=== PATIENT | male | born 1995 | race Caucasian/White ===

== ENCOUNTER 2023-06-03 18:30 | Inpatient (IN) | payer OTHER ==
[~2023-06-03] VITALS: Ht 162.6 cm; Wt 86.2 kg
[2023-06-03 18:35] VITALS: BP 180/122; PULSE 108; RESP 22; TEMP 97.8; O2SAT 96
[2023-06-03 19:15] LABS: ANION GAP 13.7 (8-16); CALCIUM 9.4 mg/dL (8.5-10.1); CARBON DIOXIDE 26.3 mmol/L (21-32); CREATININE 1.3 mg/dL (0.6-1.3)
[2023-06-03] MEDS: LORazepam 2 MG/ML VIAL IVP ONE (19:15)
[2023-06-03 19:48] LABS: BASOPHILS % (AUTO) 0.4 % (0.0-2.0); EOSINOPHILS # (AUTO) 0.1 K/uL (0-0.4); EOSINOPHILS % (AUTO) 0.6 % (0.0-4.0); HEMATOCRIT 38.5 % (36-52); LYMPHOCYTES # (AUTO) 2.9 K/uL (2.0-11.5); LYMPHOCYTES % (AUTO) 24.9 % (20.5-51.1); MEAN CORPUSCULAR HEMOGLOBIN 30 pg (27-31); MEAN CORPUSCULAR HGB CONC 34 g/dL (33-37); MEAN CORPUSCULAR VOLUME 89.2 fL (80-94); MONOCYTES # (AUTO) 0.6 K/uL (0.8-1.0); MONOCYTES % (AUTO) 5.2 % (1.7-9.3); NEUTROPHILS # (AUTO) 8.1 K/uL (1.8-7.7); NEUTROPHILS % (AUTO) 68.9 % (42.2-75.2); PLATELET COUNT (AUTO) 335 K/uL (140-450); RED BLOOD CELL COUNT(AUTO) 4.31 MIL/uL (4.20-6.10); RED CELL DISTRIBUTION WIDTH 14.1 % (11.6-13.7); WHITE BLOOD COUNT (AUTO) 11.8 K/uL (4.8-10.8)
[2023-06-03] MEDS ORDERED: ONDANSETRON 4 MG/2 ML VIAL IVP PRN (20:15)
[2023-06-03] MEDS ORDERED: MAGNESIUM OXIDE 400 MG TAB PO PRN (20:15)
[2023-06-03] MEDS ORDERED: HYDROcodone/APAP 5/325 MG 1 TAB TAB PO PRN (20:15)
[2023-06-03] MEDS ORDERED: POTASSIUM CHLORIDE 10 MEQ TABER PO PRN (20:15)
[2023-06-03] MEDS ORDERED: MAG SULF 2000 MG/WATER PREMIX 50 ML IV PRN (20:15)
[2023-06-03] MEDS ORDERED: ACETAMINOPHEN 325 MG TAB PO PRN (20:15)
[2023-06-03] MEDS ORDERED: levETIRAcetam 100 MG/ML VIAL IV ONE (20:35)
[2023-06-03] MEDS: levETIRAcetam 1,000 MG in NACL 0.9% 100 ML IV ONE (20:39)
[2023-06-03] MEDS: DIAZEPAM PFS 10 MG/2 ML SYR IVP ONE (20:40)
[2023-06-03] MEDS ORDERED: levETIRAcetam 500 MG in NACL 0.9% 100 ML IV SCH (21:00)
[2023-06-03] MEDS ORDERED: LACO100T PO (21:35)
[2023-06-03] MEDS ORDERED: HAL5 PO (21:35)
[2023-06-03] MEDS ORDERED: MIDA5SPR NS (21:43)
[2023-06-03] MEDS ORDERED: METO25TE2 PO (21:43)
[2023-06-03] MEDS ORDERED: LEVE1000 PO (21:43)
[2023-06-03] MEDS ORDERED: ATI.5 PO (21:43)
[2023-06-03] MEDS ORDERED: LAM200 PO (21:43)
[2023-06-03] MEDS ORDERED: LAM25 PO (21:43)
[2023-06-03 23:00] VITALS: BP 136/84; PULSE 105; PULSE 114; RESP 18; TEMP 98; O2SAT 98
[2023-06-03] MEDS: LORazepam 1 MG TAB PO PRN (23:10)
[2023-06-04] VITALS (8 sets, daily range): BP systolic 117–147; BP diastolic 63–85; PULSE 71–122; RESP 17–18; TEMP 97.4–97.8; O2SAT 94–99
[2023-06-04 06:47] LABS: BASOPHILS # (AUTO) 0.2 K/uL (0.00-0.22); BASOPHILS % (AUTO) 1.8 % (0.0-2.0); EOSINOPHILS # (AUTO) 0.1 K/uL (0-0.4); EOSINOPHILS % (AUTO) 1.4 % (0.0-4.0); HEMATOCRIT 41.3 % (36-52); HEMOGLOBIN 14.2 g/dL (12.0-18.0); LYMPHOCYTES # (AUTO) 3.6 K/uL (2.0-11.5); LYMPHOCYTES % (AUTO) 41.2 % (20.5-51.1); MEAN CORPUSCULAR HEMOGLOBIN 31 pg (27-31); MEAN CORPUSCULAR HGB CONC 35 g/dL (33-37); MEAN CORPUSCULAR VOLUME 88.5 fL (80-94); MONOCYTES # (AUTO) 0.6 K/uL (0.8-1.0); MONOCYTES % (AUTO) 6.4 % (1.7-9.3); NEUTROPHILS # (AUTO) 4.3 K/uL (1.8-7.7); NEUTROPHILS % (AUTO) 49.2 % (42.2-75.2); PLATELET COUNT (AUTO) 348 K/uL (140-450); RED BLOOD CELL COUNT(AUTO) 4.66 MIL/uL (4.20-6.10); RED CELL DISTRIBUTION WIDTH 14.3 % (11.6-13.7); WHITE BLOOD COUNT (AUTO) 8.7 K/uL (4.8-10.8)
[2023-06-04 07:23] LABS: ANION GAP 15.7 (8-16); CALCIUM 9.5 mg/dL (8.5-10.1); CREATININE 1.2 mg/dL (0.6-1.3); POTASSIUM 3.7 mmol/L (3.5-5.1)
[2023-06-04 07:38] LABS: MAGNESIUM 2.2 mg/dL (1.8-2.4); PHOSPHORUS 4.7 mg/dL (2.5-4.9)
[2023-06-04] MEDS: levETIRAcetam 500 MG in NACL 0.9% 100 ML IV SCH (10:05)
[2023-06-04] MEDS ORDERED: LEVE1000 PO (12:42)
[2023-06-04] MEDS ORDERED: LACO100T PO (12:42)
[2023-06-04] MEDS ORDERED: LAM200 PO (12:42)
[2023-06-04] MEDS ORDERED: MEDS-TO-BEDS MC SCH (21:00)
== END 2023-06-04 19:20 | disposition home or self-care (01) | DRG 53 ==
LOC: MED 18:30 → MTU 20:18 → MMU 21:23
PROVIDERS: ADMIT Student in an Organized Health Care Education/Training Program; ATTEND Student in an Organized Health Care Education/Training Program
DX: G40.909 Epilepsy, unspecified, not intractable, without status epilepticus (principal); E86.1 Hypovolemia; I10 Essential (primary) hypertension; Z79.899 Other long term (current) drug therapy
CPT/HCPCS: 36415; 70450; 71045; 80048; 83735; 84100; 85025; 87081; 93005; 96374; 96375; 99285; J1644; J1953; J3360

== ENCOUNTER 2023-06-07 22:04 | Inpatient (IN) | payer OTHER ==
[~2023-06-07] VITALS: Ht 175.3 cm; Wt 81.3 kg
[2023-06-07 22:04] VITALS: BP 150/116; PULSE 124; RESP 20; TEMP 98.1; O2SAT 93
[~2023-06-07 22:04] MED LIST: ATI.5 PO; HAL5 PO; LACO100T PO; LAM200 PO; LEVE1000 PO; METO25TE2 PO; MIDA5SPR NS
[2023-06-07] MEDS ORDERED: LORazepam 2 MG/ML VIAL ONE (22:26)
[2023-06-07 22:28] VITALS: O2SAT 96
[2023-06-07] MEDS: LORazepam 2 MG/ML VIAL IVP ONE (22:30)
[2023-06-07] MEDS ORDERED: PHENYTOIN 250 MG/5 ML VIAL IV ONE (22:36)
[2023-06-07] MEDS: PHENYTOIN 1,000 MG in NACL 0.9% 100 ML IV ONE (22:52)
[2023-06-07 22:57] LABS: BASOPHILS # (AUTO) 0.2 K/uL (0.00-0.22); BASOPHILS % (AUTO) 2.3 % (0.0-2.0); EOSINOPHILS # (AUTO) 0.3 K/uL (0-0.4); EOSINOPHILS % (AUTO) 3.8 % (0.0-4.0); HEMOGLOBIN 14.6 g/dL (12.0-18.0); LYMPHOCYTES # (AUTO) 2.5 K/uL (2.0-11.5); LYMPHOCYTES % (AUTO) 32.7 % (20.5-51.1); MEAN CORPUSCULAR HEMOGLOBIN 31 pg (27-31); MEAN CORPUSCULAR HGB CONC 35 g/dL (33-37); MEAN CORPUSCULAR VOLUME 88.6 fL (80-94); MONOCYTES # (AUTO) 0.7 K/uL (0.8-1.0); MONOCYTES % (AUTO) 8.9 % (1.7-9.3); NEUTROPHILS % (AUTO) 52.3 % (42.2-75.2); PLATELET COUNT (AUTO) 331 K/uL (140-450); RED BLOOD CELL COUNT(AUTO) 4.74 MIL/uL (4.20-6.10); RED CELL DISTRIBUTION WIDTH 14.2 % (11.6-13.7); WHITE BLOOD COUNT (AUTO) 7.5 K/uL (4.8-10.8)
[2023-06-07] MEDS: NACL 0.9% 1,000 ML IV ONE (22:58)
[2023-06-07 23:08] LABS: ANION GAP 14.8 (8-16); CALCIUM 8.6 mg/dL (8.5-10.1); CREATININE 1.2 mg/dL (0.6-1.3); POTASSIUM 3.8 mmol/L (3.5-5.1)
[2023-06-07 23:16] LABS: LACTIC ACID 1.7 mmol/L (0.4-2.0)
[2023-06-07 23:25] LABS: ALBUMIN 3.6 g/dL (3.4-5.0); TOTAL BILIRUBIN 0.3 mg/dL (0.0-1.0); TOTAL PROTEIN, SERUM 6.8 g/dL (6.4-8.2)
[2023-06-07] MEDS: KETAMINE 500 MG/5 ML VIAL IVP ONE (23:28)
[2023-06-08] VITALS (8 sets, daily range): BP systolic 140–148; BP diastolic 80–83; PULSE 65–123; RESP 20; TEMP 97.7–98.6; O2SAT 95–98
[2023-06-08 00:33] LABS: APPEARANCE,URINE CLEAR (CLEAR); BILIRUBIN,URINE NEGATIVE (NEGATIVE); BLOOD, URINE NEGATIVE (NEGATIVE); COLOR,URINE YELLOW (YELLOW); LEUKOCYTE ESTERASE ,URINE NEGATIVE (NEGATIVE); NITRITE, URINE NEGATIVE (NEGATIVE); PROTEIN,URINE NEGATIVE (NEGATIVE); UGLUCOSE NEGATIVE (NEGATIVE); UROBILINOGEN,URINE 0.2 EU/dL (0.2 - 1)
[2023-06-08] MEDS: LORazepam 2 MG/ML VIAL IVP ONE (00:36)
[2023-06-08] MEDS ORDERED: levETIRAcetam 100 MG/ML VIAL IV ONE (00:36)
[2023-06-08] MEDS: levETIRAcetam 1,000 MG in NACL 0.9% 100 ML IV ONE (00:38)
[2023-06-08] MEDS: HALOPERIDOL 5 MG TAB PO SCH (01:03)
[2023-06-08] MEDS ORDERED: HYDROcodone/APAP 5/325 MG 1 TAB TAB PO PRN (01:05)
[2023-06-08] MEDS ORDERED: ONDANSETRON 4 MG/2 ML VIAL IVP PRN ×2 (01:05→01:15)
[2023-06-08] MEDS ORDERED: NACL 0.9% 1,000 ML IV SCH (01:05)
[2023-06-08] MEDS ORDERED: ACETAMINOPHEN 325 MG TAB PO PRN (01:05)
[2023-06-08] MEDS: NACL 0.9% 1,000 ML IV SCH (01:24)
[2023-06-08] MEDS ORDERED: KETAMINE 500 MG/5 ML VIAL ONE (03:22)
[2023-06-08] MEDS: KETAMINE HCL 50 mg/5 mL UD SYRINGE IV ONE (03:24)
[2023-06-08] MEDS: LORazepam 2 MG/ML VIAL IVP PRN (04:04)
[2023-06-08] MEDS: LORazepam 0.5 MG TAB PO SCH (06:00)
[2023-06-08] MEDS: diphenhydrAMINE 50 MG/ML VIAL IVP ONE (06:45)
[2023-06-08] MEDS ORDERED: METOPROLOL SUCCINATE 50 MG TABER PO SCH (09:00)
[2023-06-08] MEDS: levETIRAcetam 1,000 MG in NACL 0.9% 100 ML IV SCH (11:09)
[2023-06-08] MEDS: LACOSAMIDE 100 MG TAB PO SCH (11:42)
[2023-06-08] MEDS: METOPROLOL SUCCINATE 50 MG TABER PO SCH (11:43)
[2023-06-08] MEDS: ENOXAPARIN 40 MG/0.4 ML SYR SUBQ SCH (11:54)
[2023-06-08] MEDS: CRUSHER, PILL MC ONE (12:05)
[2023-06-09] VITALS: BP 139/85; PULSE 114; RESP 22; TEMP 96.8; O2SAT 99
[2023-06-09 04:00] VITALS: BP 135/73; PULSE 100; RESP 22; TEMP 96.4; O2SAT 95
[2023-06-09 08:00] VITALS: BP 140/82; PULSE 103; RESP 20; TEMP 98.3; O2SAT 97; O2SAT 98
[2023-06-09 08:09] LABS: BASOPHILS % (AUTO) 0.4 % (0.0-2.0); EOSINOPHILS # (AUTO) 0.2 K/uL (0-0.4); EOSINOPHILS % (AUTO) 3.3 % (0.0-4.0); HEMATOCRIT 42.2 % (36-52); HEMOGLOBIN 14.3 g/dL (12.0-18.0); LYMPHOCYTES % (AUTO) 42.5 % (20.5-51.1); MEAN CORPUSCULAR HEMOGLOBIN 31 pg (27-31); MEAN CORPUSCULAR HGB CONC 34 g/dL (33-37); MEAN CORPUSCULAR VOLUME 90.3 fL (80-94); MONOCYTES # (AUTO) 0.5 K/uL (0.8-1.0); MONOCYTES % (AUTO) 6.9 % (1.7-9.3); NEUTROPHILS # (AUTO) 3.3 K/uL (1.8-7.7); NEUTROPHILS % (AUTO) 46.9 % (42.2-75.2); PLATELET COUNT (AUTO) 302 K/uL (140-450); RED BLOOD CELL COUNT(AUTO) 4.67 MIL/uL (4.20-6.10); RED CELL DISTRIBUTION WIDTH 14.1 % (11.6-13.7)
[2023-06-09 08:11] LABS: ALBUMIN 3.3 g/dL (3.4-5.0); ANION GAP 13.4 (8-16); CALCIUM 8.8 mg/dL (8.5-10.1); CARBON DIOXIDE 27.3 mmol/L (21-32); MAGNESIUM 2.3 mg/dL (1.8-2.4); POTASSIUM 3.7 mmol/L (3.5-5.1); TOTAL BILIRUBIN 0.4 mg/dL (0.0-1.0); TOTAL PROTEIN, SERUM 6.5 g/dL (6.4-8.2)
[2023-06-09 08:55] VITALS: PULSE 105
[2023-06-09 12:00] VITALS: BP 130/77; PULSE 98; RESP 20; TEMP 98.3; O2SAT 98
[2023-06-09 16:12] VITALS: BP 136/78; PULSE 96; RESP 18; TEMP 98.8
[2023-06-09] MEDS ORDERED: MEDS-TO-BEDS MC SCH (21:00)
== END 2023-06-09 19:10 | disposition home or self-care (01) | DRG 53 ==
LOC: MED 22:04 → MTU 06-08 01:06 → MED 06-08 01:06 → OBSVTOIN 06-08 01:06 → MED 06-08 01:15 → MTU 06-08 05:42
PROVIDERS: ADMIT Internal Medicine; ATTEND Internal Medicine
PROC: 4A00X4Z Measurement of Central Nervous Electrical Activity, External Approach (ICD-10-PCS; principal; 2023-06-08)
DX: G40.909 Epilepsy, unspecified, not intractable, without status epilepticus (principal); G80.9 Cerebral palsy, unspecified; F84.0 Autistic disorder; I10 Essential (primary) hypertension; Z79.899 Other long term (current) drug therapy
CPT/HCPCS: 36415; 70450; 71045; 80048; 80053; 80076; 81003; 83605; 83735; 85025; 87040; 87086; 93005; 95816; 96374; 96375; 96376; 99285; J1165; J1650; J1953; J2060

== ENCOUNTER 2023-06-11 16:40 | Inpatient (IN) | payer OTHER ==
[~2023-06-11] VITALS: Ht 162.6 cm; Wt 83.9 kg
[2023-06-11] MEDS ORDERED: LORazepam 2 MG/ML VIAL ONE (16:42)
[2023-06-11 16:53] VITALS: BP 158/68; PULSE 106; RESP 24; TEMP 98.3; O2SAT 97
[2023-06-11] MEDS: NACL 0.9% 1,000 ML IV ONE (17:04)
[2023-06-11] MEDS: LORazepam 2 MG/ML VIAL IVP ONE (17:07)
[2023-06-11] MEDS ORDERED: levETIRAcetam 100 MG/ML VIAL IV ONE ×3 (17:09→22:16)
[2023-06-11] MEDS: levETIRAcetam 1,000 MG in NACL 0.9% 100 ML IV ONE (17:19)
[2023-06-11 17:22] LABS: BASOPHILS % (AUTO) 0.3 % (0.0-2.0); EOSINOPHILS # (AUTO) 0.2 K/uL (0-0.4); EOSINOPHILS % (AUTO) 1.4 % (0.0-4.0); HEMATOCRIT 47.4 % (36-52); HEMOGLOBIN 16.3 g/dL (12.0-18.0); LYMPHOCYTES # (AUTO) 3.1 K/uL (2.0-11.5); LYMPHOCYTES % (AUTO) 28.8 % (20.5-51.1); MEAN CORPUSCULAR HEMOGLOBIN 31 pg (27-31); MEAN CORPUSCULAR HGB CONC 34 g/dL (33-37); MEAN CORPUSCULAR VOLUME 89.6 fL (80-94); MONOCYTES # (AUTO) 0.5 K/uL (0.8-1.0); MONOCYTES % (AUTO) 4.5 % (1.7-9.3); NEUTROPHILS # (AUTO) 7.1 K/uL (1.8-7.7); PLATELET COUNT (AUTO) 368 K/uL (140-450); RED BLOOD CELL COUNT(AUTO) 5.29 MIL/uL (4.20-6.10); WHITE BLOOD COUNT (AUTO) 10.9 K/uL (4.8-10.8)
[2023-06-11 18:15] LABS: ALBUMIN 4.2 g/dL (3.4-5.0); CARBON DIOXIDE 19.9 mmol/L (21-32); CREATININE 1.5 mg/dL (0.6-1.3); POTASSIUM 3.9 mmol/L (3.5-5.1); TOTAL BILIRUBIN 0.3 mg/dL (0.0-1.0); TOTAL PROTEIN, SERUM 7.9 g/dL (6.4-8.2)
[2023-06-11] MEDS ORDERED: ONDANSETRON 4 MG/2 ML VIAL IVP PRN (22:05)
[2023-06-11] MEDS ORDERED: ACETAMINOPHEN 325 MG TAB PO PRN (22:05)
[2023-06-11] MEDS: LORazepam 2 MG/ML VIAL IVP PRN (22:53)
[2023-06-11] MEDS: NACL 0.9% 1,000 ML IV SCH (22:54)
[2023-06-12] VITALS (8 sets, daily range): BP systolic 113–147; BP diastolic 63–89; PULSE 75–111; RESP 18–20; TEMP 96.8–98; O2SAT 96–99
[2023-06-12 06:19] LABS: ALBUMIN 3.4 g/dL (3.4-5.0); ANION GAP 12.8 (8-16); MAGNESIUM 2.3 mg/dL (1.8-2.4); POTASSIUM 3.8 mmol/L (3.5-5.1); TOTAL BILIRUBIN 0.3 mg/dL (0.0-1.0); TOTAL PROTEIN, SERUM 6.6 g/dL (6.4-8.2)
[2023-06-12 06:51] LABS: BASOPHILS % (AUTO) 0.5 % (0.0-2.0); EOSINOPHILS # (AUTO) 0.1 K/uL (0-0.4); EOSINOPHILS % (AUTO) 1.4 % (0.0-4.0); HEMATOCRIT 40.2 % (36-52); LYMPHOCYTES # (AUTO) 3.3 K/uL (2.0-11.5); LYMPHOCYTES % (AUTO) 36.2 % (20.5-51.1); MEAN CORPUSCULAR HEMOGLOBIN 31 pg (27-31); MEAN CORPUSCULAR HGB CONC 35 g/dL (33-37); MEAN CORPUSCULAR VOLUME 88.9 fL (80-94); MONOCYTES # (AUTO) 0.8 K/uL (0.8-1.0); MONOCYTES % (AUTO) 8.4 % (1.7-9.3); NEUTROPHILS # (AUTO) 4.9 K/uL (1.8-7.7); NEUTROPHILS % (AUTO) 53.5 % (42.2-75.2); PLATELET COUNT (AUTO) 317 K/uL (140-450); RED BLOOD CELL COUNT(AUTO) 4.52 MIL/uL (4.20-6.10); RED CELL DISTRIBUTION WIDTH 13.8 % (11.6-13.7); WHITE BLOOD COUNT (AUTO) 9.2 K/uL (4.8-10.8)
[2023-06-12] MEDS: levETIRAcetam 1,000 MG in NACL 0.9% 100 ML IV SCH (09:06)
[2023-06-12] MEDS: METOPROLOL SUCCINATE 50 MG TABER PO SCH (09:10)
[2023-06-13] VITALS (9 sets, daily range): BP systolic 124–142; BP diastolic 67–83; PULSE 56–96; RESP 18–20; TEMP 96.9–98.1; O2SAT 93–99
== END 2023-06-13 17:25 | disposition home or self-care (01) | DRG 53 ==
LOC: MED 16:40 → MTU 22:08
PROVIDERS: ADMIT Hospitalist; ATTEND Hospitalist
DX: G40.909 Epilepsy, unspecified, not intractable, without status epilepticus (principal); N17.0 Acute kidney failure with tubular necrosis; G80.9 Cerebral palsy, unspecified; F84.0 Autistic disorder; Z79.899 Other long term (current) drug therapy; R65.10 Systemic inflammatory response syndrome (SIRS) of non-infectious origin without acute organ dysfunction
CPT/HCPCS: 36415; 70450; 80053; 82553; 83735; 85025; 87081; 96374; 96375; 99285; J1953; J2060